=== PATIENT | female | born 1960 | race Caucasian/White ===

== ENCOUNTER 2017-12-13 02:20 | Inpatient (IN) | payer OTHER ==
[~2017-12-13] VITALS: Ht 170.2 cm; Wt 98.9 kg
[~2017-12-13 02:20] MED LIST: ALLEGRA ALLERG180 M1 PO; PANTOPRAZOLE SO40 M1 PO; PROAIR HFA8.5 GM INH
--- NOTE | 2017-12-13 11:32 | Patient Discharge Instructions ---
Discharge Instructions General Discharge Information You were seen/treated for: Right knee pain You had these procedures: Right total knee arthroplasty Watch for these problems: Fever over 100.4 Redness and swelling around incision Drainage from incision Unable to bear weight on right lower extremity Chest pain, shortness of breath Call Surgeon to remove: Other No bath, but you may shower: Yes Other wound care: Keep wound clean and dry Special Instructions: Daily dry dressing change Diet Continue normal diet: Yes Activity Activity Limited to: Weight bear as tolerated Acute Coronary Syndrome Inclusion Criteria At DC or during hospital stay patient has or had the following: ACS DIAGNOSIS No Discharge Core Measures Meds if any: Prescribed or Continued at Discharge Meds if any: NOT Prescribed or Continued at Discharge Congestive Heart Failure Inclusion Criteria At DC or during hospital stay patient has or had the following: CHF DIAGNOSIS No Discharge Core Measures Meds if any: Prescribed or Continued at Discharge Meds if any: NOT Prescribed or Continued at Discharge Cerebrovascular accident Inclusion Criteria At DC or during hospital stay patient has or had the following: CVA/TIA Diagnosis No Discharge Core Measures Meds if any: Prescribed or Continued at Discharge Meds if any: NOT Prescribed or Continued at Discharge Venous thromboembolism Inclusion Criteria VTE Diagnosis No VTE Type NONE VTE Confirmed by (Test) NONE Discharge Core Measures - Per Current guidelines, there needs to be overlap - treatment for the first 5 days of Warfarin therapy. - If discharged on Warfarin prior to 5 days of - overlap therapy, the patient will need to be - assessed for post discharge needs including - *Post discharge parental anticoagulation - *Warfarin and/or parental anticoagulation education - *Follow up date to check INR post discharge At least 5 days overlap therapy as Inpatient No Meds if any: Prescribed or Continued at Discharge Note: Overlap Therapy is Warfarin and Anticoagulant Meds if any: NOT Prescribed or Continued at Discharge
--- NOTE | 2017-12-13 11:33 | Admission Core Measures ---
Acute Coronary Syndrome (CM) ACS Core Measures Acute Coronary Syndrome Diagnosis No Congestive Heart Failure (NEW) CHF Core Measures Congestive Heart Failure Diagnosis No Cerebrovascular Accident CVA Core Measures CVA/TIA Diagnosis No Venous Thromboembolism VTE Core Cecilia (View Protocol) VTE Risk Factors Surgery No Mechanical VTE Prophylaxis d/t N/A MechProphylax Ordered No VTE Pharm Prophylaxis d/t NA PharmProphylax ordered Problem List As ranked by this Provider includes Assessment & Plan 1. Unilateral primary osteoarthritis, right knee HOME MEDS Home Med List Albuterol Sulfate (Proair Hfa) 90 MCG HFA.AER.AD 2 PUF INH Q4-6 PRN PRN SEASONAL ALLERGIES (Reported) Fexofenadine HCl (Loyda Allergy) 180 MG TABLET 1 TAB PO DAILY ALLERGY ( Reported) Pantoprazole Sodium 40 MG TABLET.DR 2 TAB PO DAILY REFLUX (Reported)
--- NOTE | 2017-12-13 11:36 | Surgical Discharge Summary ---
Visit Information Visit Dates Admission Date: 12/13/17 Discharge Date: 12/15/2017 History of Present Illness Chief Complaint: Right knee pain Surgical History Pertinent Surgical History: non-contributory Psychosocial History What is Your Primary Language? Guamanian Review of Systems: As per [facility] Hospital Course Course Attending Physician: Son Reeves MD Primary Care Physician: Laura WILKS,[facility] Course: Patient presented to [facility] on December 13, 2017 to have an elective right total knee arthroplasty by Dr. Reeves. Patient tolerated the procedure well. Postoperatively she was tolerating a regular diet, voiding spontaneously, pain was well-controlled with oral medications, she ambulated with physical therapy using a rolling walker and was cleared for discharge to home. She was given instructions to follow-up with Dr. Aguilar in 6 weeks. Discharge instructions were reviewed with the patient and she understood. Allergies: Coded Allergies: Penicillins (ANAPHYLAXIS 12/02/17) codeine (UPSET STOMACH 12/02/17) gluten (CELIAC DISEASE 12/11/17) lorazepam (SWELLING 12/02/17) moxifloxacin (From AVELOX) (HIVES 12/02/17) tramadol (DEPRESSION 12/11/17) Uncoded Allergies: PEANUTS (ANAPHYLAXIS 12/11/17) Significant Procedures: Right total knee arthroplasty Disposition Summary Disposition Principal Diagnosis: Right knee osteoarthritis Additional Diagnosis: Same Discharge Disposition: home health services Discharge Instructions General Discharge Information Code Status: Full Code Patient's Diet: Regular Patient's Activity: Weight-bear as tolerated with rolling walker Follow-Up Instructions/Appts: Follow-up with Dr. Aguilar in 6 weeks. Call sooner with any questions or concerns Medications at Discharge Discharge Medications: Continue taking these medications: Albuterol Sulfate (Proair Hfa) 90 MCG HFA.AER.AD 2 Puff Inhale through mouth EVERY 4-6 HOURS NEEDED as needed for SEASONAL ALLERGIES Fexofenadine HCl (Loyda Allergy) 180 MG TABLET 1 Tablet ORAL DAILY Pantoprazole Sodium (Pantoprazole Sodium) 40 MG TABLET.DR 2 Tablet ORAL DAILY Start taking the following new medications: Apixaban (Eliquis) 2.5 MG TABLET 1 Tablet ORAL TWICE DAILY Qty = 60 No Refills Docusate Sodium (Colace) 100 MG CAPSULE 1 Capsule ORAL TWICE DAILY Qty = 14 No Refills Hydromorphone HCl (Dilaudid) 2 MG TABLET 1-2 Tablet ORAL EVERY 4-6 HOURS as needed for PAIN Qty = 36 No Refills Polyethylene Glycol 3350 (Miralax) 17 GRAM POWD.PACK 1 Packet ORAL DAILY Qty = 7 No Refills Instructions: dissolve in water Copies To: Laura WILKS,Alexandra
[2017-12-13] MEDS ORDERED: COLACE100 M1 PO (13:49)
[2017-12-13] MEDS ORDERED: DILAUDID2 M1 PO (13:49)
[2017-12-13] MEDS ORDERED: MIRALAX17 G1 PO (13:49)
[2017-12-13] MEDS ORDERED: ELIQUIS2.5 M1 PO (13:49)
--- NOTE | 2017-12-13 14:03 | PN- Orthopedic ---
Subjective Subjective: Postop check Patient in PACU. Minimal complaints of pain. Still has some numbness in lower extremities. No nausea. Denies chest pain and shortness of breath. Has not ambulated yet Objective Vital Signs and I&Os Vital signs stable, afebrile Physical Exam: Generalno acute distress Respirationsclear to auscultation bilaterally Cardiacregular rate and rhythm Abdomennondistended, soft, nontender Extremitiesright knee with clean dry dressing in place, distal sensation intact , motor function still returning due to spinal anesthesia. Calves are soft bilaterally Current Medications: Current Medications Sig/Mikey Start time Last Medication Dose Route Stop Time Status Admin Acetaminophen 0 .STK-MED ONE 12/13 1018 DC PO Acetaminophen 975 MG ONCE 12/13 0000 NR PO 12/13 2359 Albuterol Sulfate 2 PUF Q4-6 PRN PRN 12/13 1115 AC INH Apixaban 2.5 MG BID 12/14 0900 AC PO Loratadine 10 MG DAILY 12/14 0900 AC PO Omeprazole 40 MG DAILY AC 12/14 0700 AC PO Oxycodone HCl 0 .STK-MED ONE 12/13 1017 DC PO Oxycodone HCl 10 MG ONCE 12/13 0000 NR PO 12/13 2359 Vancomycin HCl 1,500 MG ONCE 12/13 0000 NR Sodium Chloride 250 ML IV 12/13 2359 Assessment/Plan Assessment/Plan 57-year-old female status post right total knee replacement postop day 0. Stable Pain managementwill try to limit narcotics as patient says he has no significant history of nausea DVT prophylaxisEliquis 2.5 to start tomorrow Physical therapyweightbearing as tolerated with rolling walker Follow-up a.m. labs Dressing change postop day 2 Regular home meds Regular diet Discharge planninglikely to stay 2 nights and then home with health services Core Measures Venous Thromboembolism VTE Risk Factors Surgery No Mechanical VTE Prophylaxis d/t N/A MechProphylax Ordered No VTE Pharm Prophylaxis d/t NA PharmProphylax ordered
[2017-12-13 14:35] VITALS: BP 128/62
--- NOTE | 2017-12-13 15:26 | Operative Report ---
Operative/Inv Procedure Report Surgery Date: 12/13/17 Name of Procedure: Right total knee replacement Pre-Operative Diagnosis: Primary right knee DJD Post-Operative Diagnosis: Same Estimated Blood Loss: 50ml to 100ml Surgeon/Printed Circuit Boards Inspector: Jace WILKS,Son Fine Anesthesia: block Operative/Procedure Note Note: Description of Procedure: The patient was taken to the operating room and positively identified. After induction of spinal anesthesia and administration of appropriate pre-operative antibiotics, the patient was positioned supine on the operating room table and all bony prominences were well padded. A well-padded pneumatic tourniquet was placed on the right upper thigh. After performing a surgical timeout, the right lower extremity was prepped and draped in the usual sterile fashion. After exsanguination with Esmarch the tourniquet was inflated to 250mm of mercury. A standard medial parapatellar approach was made to the knee. This was carried down through skin and subcutaneous tissue to the level of the fascia. Meticulous hemostasis was maintained with Bovie electrocautery. The extensor mechanism and patellar retinaculum were opened sharply and the patella was everted. The infrapatellar fat was resected in order to improve exposure. Osteophytes were trimmed from the patella and femoral condyles and the patella was re-everted and tucked laterally. A medial release was performed and the cruciate ligaments were resected. The tibia was then subluxed anteriorly. Utilizing the appropriate extra-medullary guide, the proximal tibia was trimmed perpendicular to the long axis of the tibial shaft. Attention was then turned to the femur. After opening the medullary canal, the distal femoral cut was made in 6 degrees of valgus utilizing the appropriate intra-medullary guide. The extension gap was checked and found to be appropriate. The femur was then sized and the remainder of the femoral cuts were made with a size #4 4-in-1 femoral cutting guide. The flexion gap was checked and found to be symmetric and appropriate. The knee was then trialed with a size #4 femoral component, a size 5 tibial component and a size 16 mm polyethylene insert. The patella was trimmed to accept an A 35 patella. This yielded excellent range of motion, stability and patellar tracking. All trial components were removed and the knee was copiously irrigated with sterile saline. All components were cemented into place with Daniel Simplex cement. All the components were of the Calion Triathlon knee system of the above stated sizes. The knee was again irrigated after cementation. The extensor mechanism and patellar retinaculum were repaired using interrupted #1 vicryl suture. The skin was re-approximated with 2-0 vicryl and closed with anne-marie. A sterile dressing was applied, the tourniquet was deflated, the patient was awakened and taken to the recovery room in satisfactory condition.
[2017-12-13 16:20] VITALS: BP 120/78
[2017-12-13 18:30] VITALS: BP 120/72
[2017-12-13 20:30] VITALS: BP 128/90
[2017-12-13 22:31] VITALS: BP 118/70
[2017-12-14 03:40] VITALS: BP 112/60
[2017-12-14 07:20] VITALS: BP 120/70
[2017-12-14 07:54] LABS: ABSOLUTE BASOPHIL COUNT 0 /CUMM (0.0-0.2); ABSOLUTE EOSINOPHIL COUNT 0 /CUMM (0.0-0.7); ABSOLUTE GRANULOCYTE CT 5.1 /CUMM (1.4-6.5); ABSOLUTE LYMPH COUNT 0.6 /CUMM (1.2-3.4); ABSOLUTE MONOCYTE COUNT 0.3 /CUMM (0.10-0.60); BASOPHIL % 0.2 % (0.0-2.0); EOSINOPHIL % 0.3 % (0-5); HEMATOCRIT 27.7 % (37-47); MEAN CORPUSCULAR HGB 31.9 PG (27.0-31.0); MEAN CORPUSCULAR HGB CONC 34.5 G/DL (33.0-37.0); MEAN CORPUSCULAR VOLUME 92.6 FL (81.0-99.0); MEAN PLATELET VOLUME 8.8 FL (7.4-10.4); PLATELET COUNT 161 /CUMM (130-400); RBC DISTRIBUTION WIDTH 14.1 % (11.5-14.5); RED BLOOD CELL CT 2.99 /CUMM (4.20-5.40)
--- NOTE | 2017-12-14 08:18 | PN- Orthopedic ---
Subjective Subjective: Patient sitting in chair, had pain overnight, narcotics made patient very nauseous, no vomiting. Denies chest pain shortness of breath this morning. Patient has been out of bed, ambulating, voiding, passing gas. Due to work with physical therapy this morning Objective Vital Signs and I&Os Vital Signs Date Time Temp Pulse Resp B/P B/P Pulse O2 O2 Flow FiO2 Mean Ox Delivery Rate 12/14 0720 98.3 56 18 120/70 95 12/14 0340 97.9 77 22 112/60 100 Room Air 12/14 0000 98 Room Air 12/13 2231 98.4 74 18 118/70 96 Room Air 12/13 2030 98.0 77 18 128/90 93 Room Air 12/13 1830 97.9 68 18 120/72 95 Room Air 12/13 1620 97.5 59 18 120/78 99 Room Air 12/13 1435 97.4 56 18 128/62 95 Room Air Room Air Intake & Output 12/14 1600 12/14 0800 12/14 0000 12/13 1600 12/13 0800 12/13 0000 Intake Total 993 1500 Output Total 1000 1500 Balance -7 0 Intake, IV 793 600 Intake, Oral 200 900 Number 0 Bowel Movements Output, Urine 1000 1500 Patient 218 lb Weight Weight Reported by Patient Measurement Method Physical Exam: Generalno acute distress Respirationsclear Cardiacregular rate and rhythm Abdomensoft nontender Extremitiesright knee dressing clean and dry, distal sensory and motor function intact, calves are soft bilaterally and nontender Current Medications: Current Medications Sig/Mikey Start time Last Medication Dose Route Stop Time Status Admin Acetaminophen 975 MG Q6H 12/13 1445 AC 12/14 PO 0325 Acetaminophen 0 .STK-MED ONE 12/13 1018 DC PO Acetaminophen 975 MG ONCE 12/13 0000 DC PO 12/13 2359 Albuterol Sulfate 2 PUF Q4-6 PRN PRN 12/13 1445 AC INH Albuterol Sulfate 2 PUF Q4-6 PRN PRN 12/13 1115 DC INH Apixaban 2.5 MG BID 12/14 0900 AC PO Dexamethasone 4 MG .STK-MED ONE 12/13 1032 DC IM 12/13 1033 Dextrose/Sodium 1,000 ML .[id number] 12/13 1445 AC 12/14 Chloride IV 0500 Docusate Sodium 100 MG BID 12/13 2100 AC 12/13 PO 2127 Fentanyl Citrate 100 MCG .STK-MED ONE 12/13 1032 DC IM 12/13 1033 Hydromorphone HCl 2 MG Q4P PRN 12/13 1445 AC 12/13 PO 2219 Hydromorphone HCl 4 MG Q4P PRN 12/13 1445 AC 12/14 PO 0330 Loratadine 10 MG DAILY 12/14 0900 DC PO Loratadine 10 MG DAILY 12/14 0900 AC PO Melatonin 5 MG AT BEDTIME 12/14 2100 AC PO Midazolam HCl 2 MG .STK-MED ONE 12/13 1032 DC IM 12/13 1033 Morphine Sulfate 2 MG Q2P PRN 12/13 1445 AC 12/14 IV 0035 Omeprazole 40 MG DAILY AC 12/14 0700 DC PO Omeprazole 40 MG DAILY AC 12/14 0700 AC PO Ondansetron HCl 4 MG .STK-MED ONE 12/13 1626 DC IV 12/13 1627 Ondansetron HCl 4 MG Q6P PRN 12/13 1445 AC 12/14 IV 0511 Oxycodone HCl 0 .STK-MED ONE 12/13 1017 DC PO Oxycodone HCl 10 MG ONCE 12/13 0000 DC PO 12/13 2359 Polyethylene Glycol 17 GM DAILY 12/14 0900 AC PO Tranexamic Acid 2,000 MG .STK-MED ONE 12/13 1032 DC IV 12/13 1033 Vancomycin HCl 1,500 MG ONCE ONE 12/13 2100 DC 12/13 Sodium Chloride 250 ML IV 12/13 2229 2219 Vancomycin HCl 1,500 MG ONCE 12/13 0000 DC Sodium Chloride 250 ML IV 12/13 2359 Results Last 48 Hours of Labs: Laboratory Tests 12/15 627 Chemistry Sodium (137 - 145 mmol/L) 138 Potassium (3.5 - 5.1 mmol/L) 3.7 Chloride (98 - 107 mmol/L) 105 Carbon Dioxide (22 - 30 mmol/L) 24 Anion Gap (5 - 16) 9 BUN (7 - 17 mg/dL) 13 Creatinine (0.5 - 1.0 mg/dL) 0.5 Estimated GFR (>60 ml/min) > 60 BUN/Creatinine Ratio (7 - 25 %) 26.0 H Hematology CBC w Diff Pending WBC Pending RBC Pending Hgb Pending Hct Pending MCV Pending MCH Pending MCHC Pending RDW Pending Plt Count Pending MPV Pending Gran % Pending Lymphocytes % Pending Monocytes % Pending Eosinophils % Pending Basophils % Pending Absolute Granulocytes Pending Absolute Lymphocytes Pending Absolute Monocytes Pending Absolute Eosinophils Pending Absolute Basophils Pending Assessment/Plan Assessment/Plan 57-year-old female status post right total knee replacement postop day 1. Stable. was very nauseous overnight with narcotics Pain managementwill try to limit narcotics and add toradol for pain management DVT prophylaxisEliquis 2.5 to start today Physical therapyweightbearing as tolerated with rolling walker Follow-up a.m. labs Dressing change postop day 2 Regular home meds Regular diet as tolerated Discharge planninglikely to stay 2 nights and then home with health services Core Measures Venous Thromboembolism VTE Risk Factors Surgery No Mechanical VTE Prophylaxis d/t N/A MechProphylax Ordered No VTE Pharm Prophylaxis d/t NA PharmProphylax ordered
[2017-12-14 08:45] LABS: GRANULOCYTE % 84.6 % (42.2-75.2)
[2017-12-14 09:34] VITALS: BP 110/70
[2017-12-14 14:46] VITALS: BP 124/80
[2017-12-14 21:33] VITALS: BP 120/88
[2017-12-15 06:53] VITALS: BP 120/62
--- NOTE | 2017-12-15 07:39 | PN- Orthopedic ---
Subjective Subjective: patient complains of quad tightness and intermittent spasms Objective Vital Signs and I&Os Vital Signs Date Time Temp Pulse Resp B/P B/P Pulse O2 O2 Flow FiO2 Mean Ox Delivery Rate 12/15 0653 97.9 72 18 120/62 97 12/14 2133 98.8 73 18 120/88 98 12/14 1446 98.3 76 18 124/80 98 Room Air 12/14 1244 Room Air Room Air 12/14 0934 98.4 64 18 110/70 96 Room Air Intake & Output 12/15 0800 12/15 0000 12/14 1600 12/14 0800 12/14 0000 12/13 1600 Intake Total 250 810 788 225 9247 Output Total 378 736 0570 1500 Balance 250 -90 -210 -7 0 Intake, IV 10 150 793 600 Intake, Oral 250 800 540 200 900 Number 0 0 Bowel Movements Output, Urine 702 670 0288 1500 Patient 218 lb Weight Weight Reported by Patient Measurement Method Physical Exam: right knee- calves soft, dolly in place dressings dry, distal pulses intact sensory-motor intact Assessment/Plan Assessment/Plan POD #2 Left TKA ordered robaxin for spasm, will return later prior to D/C for dressing change DVT proph -eliquis did well with PT, voiding and tolarating PO plan to D/C home early afternoon Core Measures Venous Thromboembolism VTE Risk Factors Surgery No Mechanical VTE Prophylaxis d/t N/A MechProphylax Ordered No VTE Pharm Prophylaxis d/t NA PharmProphylax ordered
[2017-12-15] MEDS ORDERED: ROBAXIN500 M1 PO (11:58)
[2017-12-15] MEDS ORDERED: ZOFRAN4 M2 PO (11:58)
== END 2017-12-15 12:28 | disposition home health service (06) | DRG 470 ==
LOC: SDA 02:20 → ENRESERV 13:26 → ENTRNSPT 14:08 → EDTRNSPTSTS 14:10 → 2NB 14:21 → CMPTRNSPT 14:34 → ENPENDDIS 12-15 07:42 → DELTRNSPT 12-15 12:15 → ENTRNSPT 12-15 12:16 → EDTRNSPT 12-15 12:18 → EDTRNSPTSTS 12-15 12:18 → 2NB 12-15 12:28 → CMPTRNSPT 12-15 13:07
PROVIDERS: Physician Assistant Surgical
PROC: 3E0T3BZ Introduction of Anesthetic Agent into Peripheral Nerves and Plexi, Percutaneous Approach (ICD-10-PCS; principal; 2017-12-13)
PROC: 0SRC0J9 Replacement of Right Knee Joint with Synthetic Substitute, Cemented, Open Approach (ICD-10-PCS; principal; 2017-12-13)
DX: M17.11 Unilateral primary osteoarthritis, right knee (principal); Z79.51 Long term (current) use of inhaled steroids; Z88.1 Allergy status to other antibiotic agents; Z88.5 Allergy status to narcotic agent; Z88.0 Allergy status to penicillin; Z88.8 Allergy status to other drugs, medicaments and biological substances; M62.838 Other muscle spasm; K21.9 Gastro-esophageal reflux disease without esophagitis; K90.0 Celiac disease; Z90.49 Acquired absence of other specified parts of digestive tract; Z90.710 Acquired absence of both cervix and uterus
CPT/HCPCS: 2NBP; 36592; 82436; 97110-GO; 97116-GO; 97161-GP; 97530-GO; C1713; C9290; J1100; J1885; J2405; J2765; J3370; J3490; J7040; J7042

== ENCOUNTER 2018-01-13 20:15 | Emergency (ER) | payer OTHER ==
[~2018-01-13 20:15] MED LIST changes: +COLACE100 M1 PO; +DILAUDID2 M1 PO; +ELIQUIS2.5 M1 PO; +MIRALAX17 G1 PO; +ROBAXIN500 M1 PO; +ZOFRAN4 M2 PO
--- NOTE | 2018-01-13 20:49 | ED UPPER/LOWER EXTREMITY COMPL ---
History of Present Illness General Chief Complaint: Lower Extremity Problems Stated Complaint: ?CELLULITIS FROM RECENT KNEE SURGERY PER PT Source: patient Exam Limitations: no limitations Vital Signs & Intake/Output Vital Signs & Intake/Output Vital Signs Date Time Temp Pulse Resp B/P B/P Pulse O2 O2 Flow FiO2 Mean Ox Delivery Rate 01/13 2302 97.6 64 18 141/86 100 Room Air 01/13 2022 97.7 72 18 114/77 98 Room Air Allergies Coded Allergies: Penicillins (ANAPHYLAXIS 12/02/17) codeine (UPSET STOMACH 12/02/17) gluten (CELIAC DISEASE 12/11/17) lorazepam (SWELLING 12/02/17) moxifloxacin (From AVELOX) (HIVES 12/02/17) tramadol (DEPRESSION 12/11/17) Uncoded Allergies: PEANUTS (ANAPHYLAXIS 12/11/17) Reconcile Medications Albuterol Sulfate (Proair Hfa) 90 MCG HFA.AER.AD 2 PUF INH Q4-6 PRN PRN SEASONAL ALLERGIES (Reported) Apixaban (Eliquis) 2.5 MG TABLET 1 TAB PO BID CLOT PREVENTION Docusate Sodium (Colace) 100 MG CAPSULE 1 CAP PO BID CONSTIPATION Fexofenadine HCl (Loyda Allergy) 180 MG TABLET 1 TAB PO DAILY ALLERGY ( Reported) Hydromorphone HCl (Dilaudid) 2 MG TABLET 1-2 TAB PO Q4-6 PRN PAIN Methocarbamol (Robaxin) 500 MG TABLET 1 TAB PO BID PRN PAIN CONTROL STAGGER WITH PAIN MEDICATION Ondansetron HCl (Zofran) 4 MG TABLET 1 TAB PO Q6-8P PRN NAUSEA/VOMITING Pantoprazole Sodium 40 MG TABLET.DR 2 TAB PO DAILY REFLUX (Reported) Polyethylene Glycol 3350 (Miralax) 17 GRAM POWD.PACK 1 PAC PO DAILY CONSTIPATION dissolve in water Sulfamethoxazole/Trimethoprim (Bactrim Ds Tablet) 800 MG-160 MG TABLET 1 TAB PO BID CELLULITIS Triage Note: PT TO TRIAGE S/P R KNEE REPLACEMENT 4 WEEKS AGO. PT C/O REDNESS AROUND STERI STRIPS SINCE YESTERDAY PROGRESSING UP THIGH TODAY, WARM TO TOUCH. HX OF CELLULITIS IN OTHER AREAS. AFEBRILE. PT AMBULATES ON OWN WITH SLOW STEADY GAIT. Triage Nurses Notes Reviewed? yes Onset: Abrupt Duration: getting worse Timing: single episode today Severity: mild Severity Numbers: 3 HPI: Patient is a 57-year-old female who presents emergency room with concerns of a 4 week postop of a RIGHT total knee replacement performed by orthopedic surgeon Dr. CORDOVA who states that yesterday at the receiving physical therapy she noted the gradual onset of incisional redness and migration of redness and warmth to the medial aspect of her knee. Denies any fever chills or trauma denies any discharge from the incision site Denies any change of range of motion to the left knee Patient denies any recent falls or trauma Past History Travel History Traveled to [place] past 21 day No Medical History Any Pertinent Medical History? see below for history Neurological: NONE EENT: NONE Cardiovascular: BRADYCARDIA Respiratory: asthma Gastrointestinal: CELIAC Hepatic: NONE Renal: NONE Musculoskeletal: NONE Psychiatric: NONE Endocrine: NONE Blood Disorders: NONE Cancer(s): NONE VETERINARY TECHNOLOGIST/Reproductive: NONE History of MRSA: No History of VRE: No History of CDIFF: No Surgical History Surgical History: cholecystectomy, hysterectomy, ACL REPAIR Psychosocial History Who do you live with Spouse Services at Home None What is your primary language Citizen Of [place] Tobacco Use: Never used Family History Hx Contributory? No Review of Systems Review of Systems Constitutional: Reports: no symptoms. EENTM: Reports: no symptoms. Respiratory: Reports: no symptoms. Cardiovascular: Reports: no symptoms. Gastrointestinal/Abdominal: Reports: no symptoms. Genitourinary: Reports: no symptoms. Musculoskeletal: Reports: see HPI. Skin: Reports: see HPI. Neurological/Psychological: Reports: no symptoms. Hematologic/Endocrine: Reports: no symptoms. Immunological: Reports: no symptoms. All Other Systems: Reviewed and Negative Physical Exam Physical Exam General Appearance: no apparent distress, alert, comfortable Head: atraumatic Eyes: Bilateral: normal appearance. Ears, Nose, Throat: hearing grossly normal Neck: normal inspection Cardiovascular/Respiratory: no respiratory distress Neurologic/Tendon: normal sensation, normal motor functions, normal tendon functions, responds to pain, no evidence tendon injury, no pulse deficit Skin: intact, warm/dry Diagram Legs Front/Back 1) Noted intact incisional scar with medial aspect erythema warmth and point tenderness for active range of motion of flexion and extension no active discharge Progress Differential Diagnosis: arterial insufficiency, cellulitis, compartment syndrome , contusion, dislocation, DVT, fracture, gout, septic arthritis, sprain, tendon injury Plan of Care: Orders Procedure Date/time Status COMPREHENSIVE METABOLIC PANEL 01/13 2031 Complete CBC WITHOUT DIFFERENTIAL 01/13 2031 Complete Laboratory Tests 01/13/182048: Anion Gap 11, Estimated GFR > 60, BUN/Creatinine Ratio 18.3, Glucose 98, Calcium 9.8, Total Bilirubin 0.6, AST 30, ALT 26, Alkaline Phosphatase 113, Total Protein 7.2, Albumin 4.3, Globulin 2.9, Albumin/Globulin Ratio 1.5, CBC w Diff NO MAN DIFF REQ, RBC 3.67 L, MCV 92.9, MCH 32.0 H, MCHC 34.5, RDW 15.0 H, MPV 8.2, Gran % 45.2, Lymphocytes % 42.4, Monocytes % 5.6, Eosinophils % 6.0 H, Basophils % 0.8, Absolute Granulocytes 2.7, Absolute Lymphocytes 2.5, Absolute Monocytes 0.3, Absolute Eosinophils 0.4, Absolute Basophils 0 Patient was afebrile nontoxic appearing Patient has full appropriate active range of motion status post 4 weeks of a right total knee replacement [phone]- DR CORDOVA'S service was paged [phone]- DR CORDOVA'S SERVICE WAS PAGED Discussed patient with 'S service who agrees with disposition plan patient, TO GIVE patient Bactrim and she will follow-up tomorrow with him IN THE outpatient office Patient was afebrile no leukocytosis x-ray shows concerns of cellulitis no overt findings of septic arthritis Discussed disposition plan with patient who agrees and has no questions Diagnostic Imaging: Viewed by Me: Radiology Read. Radiology Impression: SEE COMMENTS Comments: PATIENT: MYLES CARO PRESENT AGE: 57 PATIENT ACCOUNT NO: [id number] : 61 LOCATION: [facility] ORDERING PHYSICIAN: Jesse DAVIS SERVICE DATE: 01/13/18 EXAM TYPE: RAD - XRY-KNEE COMPLETE RIGHT EXAMINATION: XR KNEE, RIGHT CLINICAL INFORMATION: Status post total knee replacement. Cellulitis. COMPARISON: None TECHNIQUE: Four views of the right knee. FINDINGS: Hardware from right knee arthroplasty is demonstrated. No evidence of hardware fracture or periprosthetic lucency. Decreased bone mineral density. No acute osseous fracture. Nonspecific knee joint effusion. Diffuse subcutaneous edema about the right knee. IMPRESSION: 1. Diffuse subcutaneous edema about the right knee may reflect sequela of known cellulitis. 2. Status post right total knee arthroplasty without radiographic evidence of hardware complication. 3. Nonspecific knee joint effusion. DICTATED BY: Poli Sosa MD DATE/TIME DICTATED:01/13/182153 Departure Departure Disposition: HOME OR SELF CARE Condition: Stable Clinical Impression Primary Impression: Cellulitis of right knee Referrals: Alexandra Sanchez MD (PCP/Family) Additional Instructions: As discussed please follow-up with YOUR ORTHOPEDIC DOCTOR tomorrow, if symptoms worsen or if YOU develop any new concerning symptom return TO THE ER. Begin the prescription of Bactrim as directed. Prescriptions waiting at [facility]. Departure Forms: Customer Survey General Discharge Information Prescriptions: Current Visit Scripts Sulfamethoxazole/Trimethoprim (Bactrim Ds Tablet) 1 TAB PO BID #20 TAB
[2018-01-13 21:07] LABS: ABSOLUTE BASOPHIL COUNT 0 /CUMM (0.0-0.2); ABSOLUTE EOSINOPHIL COUNT 0.4 /CUMM (0.0-0.7); ABSOLUTE GRANULOCYTE CT 2.7 /CUMM (1.4-6.5); ABSOLUTE LYMPH COUNT 2.5 /CUMM (1.2-3.4); ABSOLUTE MONOCYTE COUNT 0.3 /CUMM (0.10-0.60); BASOPHIL % 0.8 % (0.0-2.0); GRANULOCYTE % 45.2 % (42.2-75.2); HEMATOCRIT 34.1 % (37-47); MEAN CORPUSCULAR HGB CONC 34.5 G/DL (33.0-37.0); MEAN CORPUSCULAR VOLUME 92.9 FL (81.0-99.0); MEAN PLATELET VOLUME 8.2 FL (7.4-10.4); PLATELET COUNT 244 /CUMM (130-400); RED BLOOD CELL CT 3.67 /CUMM (4.20-5.40)
--- NOTE | 2018-01-13 22:06 | RADIOLOGY REPORT ---
EXAMINATION: XR KNEE, RIGHT CLINICAL INFORMATION: Status post total knee replacement. Cellulitis. COMPARISON: None TECHNIQUE: Four views of the right knee. FINDINGS: Hardware from right knee arthroplasty is demonstrated. No evidence of hardware fracture or periprosthetic lucency. Decreased bone mineral density. No acute osseous fracture. Nonspecific knee joint effusion. Diffuse subcutaneous edema about the right knee. IMPRESSION: 1. Diffuse subcutaneous edema about the right knee may reflect sequela of known cellulitis. 2. Status post right total knee arthroplasty without radiographic evidence of hardware complication. 3. Nonspecific knee joint effusion.
[2018-01-13 23:02] VITALS: BP 141/86
[2018-01-13] MEDS ORDERED: BACTRIM DS TAB1 EACH PO (23:26)
== END 2018-01-13 23:35 ==
LOC: ERH 20:15
PROVIDERS: Emergency Medicine
DX: L03.115 Cellulitis of right lower limb (principal)
CPT/HCPCS: 73562-RT